=== PATIENT | male | born 1960 | race Caucasian/White ===

== ENCOUNTER → 2023-10-26 | Outpatient (CLI) | payer MEDICARE, MEDICAID ==
[~2023-10-26] VITALS: Ht 182.9 cm; Wt 69.4 kg
[~2023-10-26] MED LIST: ADENOSINE 58 MG in GIVE UN-DILUTED 0 ML IV ONE; ADENOSINE 90 MG/30 ML INJ IV ONE
== END | disposition home or self-care (01) ==
LOC: Rad HDHVI 08:17
PROVIDERS: ATTEND Internal Medicine Cardiovascular Disease
DX: I25.10 Atherosclerotic heart disease of native coronary artery without angina pectoris (principal); I45.10 Unspecified right bundle-branch block; J44.9 Chronic obstructive pulmonary disease, unspecified; E78.00 Pure hypercholesterolemia, unspecified; F17.210 Nicotine dependence, cigarettes, uncomplicated; Z82.49 Family history of ischemic heart disease and other diseases of the circulatory system; Z79.899 Other long term (current) drug therapy; Z79.82 Long term (current) use of aspirin
CPT/HCPCS: 78452; 93005; 96374; 96375; A9500; J0153

== ENCOUNTER → 2024-03-02 | Outpatient (CLI) | payer MEDICARE, MEDICAID | END | disposition home or self-care (01) | LOC: Rad HDHVI 09:06 | PROVIDERS: ATTEND Internal Medicine Cardiovascular Disease | DX: R06.02 Shortness of breath (principal); R05.9 Cough, unspecified | CPT/HCPCS: 71046 ==

== ENCOUNTER → 2024-07-01 | Outpatient (CLI) | payer MEDICARE, MEDICAID ==
[2024-07-01 09:51] LABS: Urine Blood Negative /uL (Negative); Urine Clarity Clear (Clear); Urine Color Yellow (Yellow); Urine Protein, UAD Negative (Negative); Urine Specific Gravity 1.017 (1.001-1.035); Urine Urobilinogen Normal (Negative); Urine pH 6.5 (5.0-9.0)
[2024-07-01 09:55] LABS: Hemoglobin 15.5 g/dL (13.5-17.5); Mean Corpuscular Hgb Conc. 34.7 g/dL (32.0-36.0); Red Blood Cells 4.51 10^6/uL (4.5-5.90); White Blood Cell 2.5 10^3/uL (4.4-10.8)
[2024-07-01 09:57] LABS: Hematocrit 44.6 % (41.0-53.0); Mean Corpuscular Hemoglobin 34.3 pg (28.0-32.0); Mean Corpuscular Volume 98.9 fL (80.0-100.0); Platelet Count (auto) 215 10^3/uL (140-450); Red Cell Distribution Width 13.7 % (11.8-14.3)
[2024-07-01 10:04] LABS: Band Neutrophils % (manual) 0; Basophils % (manual) 0 (0.0-2.0); Blast Cells 0; Metamyelocytes % 0; Myelocytes % 0; Promyelocytes % 0; Reactive Lymphocytes 0
[2024-07-01 10:12] LABS: Alanine Aminotransferase 16 U/L (7-40); Albumin 4.7 g/dL (3.2-4.8); Alkaline Phosphatase 85 U/L (46-116); Anion Gap 4 (5-15); BUN/Creatinine Ratio 18.1 (10.0-20.0); Blood Urea Nitrogen 13 mg/dL (9-23); Calcium 10.4 mg/dL (8.7-10.4); Carbon Dioxide 31 mmol/L (20-31); Chloride 96 mmol/L (98-107); Glucose 92 mg/dL (74-106); LDL Cholesterol 55 mg/dL (< 100); Potassium 4.2 mmol/L (3.5-5.1); Sodium 131 mmol/L (136-145); Triglycerides 50 mg/dL (< 150)
[2024-07-01 10:13] LABS: Bilirubin, Direct 0.2 mg/dL (<0.3); Bilirubin, Total 0.6 mg/dL (0.2-1.0); Cholesterol 138 mg/dL (< 200); HDL Cholesterol 76 mg/dL (40-59); Total Protein 8.3 g/dL (5.7-8.2)
[2024-07-01 10:20] LABS: Aspartate Aminotransferase 22 U/L (13-40)
[2024-07-01 12:56] LABS: Eosinophils % (manual) 2 (0-7); Lymphocytes % (manual) 6 (10.0-50.0); Monocytes % (manual) 10 (0-12); Platelet Estimate Adequate
== END | disposition home or self-care (01) ==
LOC: LAB 09:17
PROVIDERS: ATTEND Internal Medicine Cardiovascular Disease
DX: C61 Malignant neoplasm of prostate (principal); I10 Essential (primary) hypertension; E11.9 Type 2 diabetes mellitus without complications; R53.1 Weakness; R00.2 Palpitations; D64.9 Anemia, unspecified; E55.9 Vitamin D deficiency, unspecified; D57.3 Sickle-cell trait
CPT/HCPCS: 36415; 80048; 80061; 80076; 81003; 83036; 84153; 84403; 84443; 85007; 85027

== ENCOUNTER → 2024-12-07 | Outpatient (CLI) | payer MEDICARE, MEDICAID ==
--- NOTE | 2024-12-07 11:04 | DVH ---
EXAM: XY CHEST TWO VIEWS ROUTINE INDICATION: PRE OP PRE OP 64 years old, Male; PRE OP. TECHNIQUE: 2 views of the chest COMPARISON: XY CHEST TWO VIEWS ROUTINE on DOS: 03/02/24 FINDINGS: LUNGS: No pleural effusion, consolidation, or pneumothorax MEDIASTINUM: Unremarkable BONES: No acute osseous abnormality OTHER: None IMPRESSION: 1. No radiographic evidence of an acute cardiopulmonary process.
== END | disposition home or self-care (01) ==
LOC: Rad HDHVI 09:36
PROVIDERS: ATTEND Internal Medicine Cardiovascular Disease
DX: Z01.818 Encounter for other preprocedural examination (principal); J44.9 Chronic obstructive pulmonary disease, unspecified
CPT/HCPCS: 71046

== ENCOUNTER → 2024-12-09 | Outpatient (CLI) | payer MEDICARE, MEDICAID ==
--- NOTE | 2024-12-09 08:44 | DVHSR ---
APPROVED REPORT EXAM: LIMITED Two-dimensional and M-mode echocardiogram with Doppler and color Doppler. DIMENSIONS LVDd4.3 (3.8-5.7cm)LA (2D)3.4 (1.9-4.0cm)Aortic Root3.1 (2.0-3.7cm) LVDs2.8 (2.5-4.0cm)LA (MM) (1.9-4.0cm)Aortic Cusp Exc1.8 (1.5-2.0cm) EF (%) 65.0 (55-70%)Rt. Atrium3.8 (1.9-4.0cm)Asc. Aorta cm IVSd1.0 (0.7-1.1cm)RV (D) (1.8-2.4cm) PWd1.0 (0.7-1.1cm) Mitral Valve MitralMitral Stenosis E wave0.70m/sMV Mean GR.mmHg A wave0.80m/sMV Peak GR.mmHg E/A ratio0.92D MVAcm2 Aortic Valve Aortic ValveAortic Stenosis V10.70m/Taryn Mean GR.2mmHg V20.90m/Taryn Peak GR.4mmHg LVOT Diameter2.2 (1.8-2.4cm)Doppler AVA2.96cm2 Pulmonic Valve V20.80m/s LEFT VENTRICLE The left ventricle is normal size. The left ventricle is normal in structure and function. The Ejection Fraction is within normal limits. RIGHT VENTRICLE The right ventricle is normal size. ATRIA The left atrial size is normal. The right atrium size is normal. The atrial septum is aneurysmal. MITRAL VALVE The mitral valve is normal in structure. There is no mitral valve regurgitation noted. PULMONIC VALVE The pulmonic valve is not well visualized. TRICUSPID VALVE The tricuspid valve is grossly normal. AORTIC VALVE The aortic valve opens well. No aortic regurgitation is present. GREAT VESSELS The aortic root is normal size. PERICARDIAL EFFUSION There is no pericardial effusion. Conclusion EF >60%
== END | disposition home or self-care (01) ==
LOC: Rad HDHVI 07:58
PROVIDERS: ATTEND Internal Medicine Cardiovascular Disease
DX: I72.8 Aneurysm of other specified arteries (principal); I10 Essential (primary) hypertension
CPT/HCPCS: 93306

== ENCOUNTER → 2024-12-14 | Outpatient (CLI) | payer MEDICARE, MEDICAID ==
[~2024-12-14] VITALS: Ht 182.9 cm; Wt 65.3 kg
[~2024-12-14] MED LIST changes: +ADENOSINE 55 MG in GIVE UN-DILUTED 0 ML IV ONE; -ADENOSINE 58 MG in GIVE UN-DILUTED 0 ML IV ONE
== END | disposition home or self-care (01) ==
LOC: Rad HDHVI 08:04
PROVIDERS: ATTEND Internal Medicine Cardiovascular Disease
DX: I49.1 Atrial premature depolarization (principal); I49.3 Ventricular premature depolarization; I25.10 Atherosclerotic heart disease of native coronary artery without angina pectoris; I10 Essential (primary) hypertension; J44.9 Chronic obstructive pulmonary disease, unspecified; E78.00 Pure hypercholesterolemia, unspecified; F17.210 Nicotine dependence, cigarettes, uncomplicated; Z82.49 Family history of ischemic heart disease and other diseases of the circulatory system; Z98.61 Coronary angioplasty status
CPT/HCPCS: 78452; 93017; A9500; J0153; 93005; 96374; 96375

== ENCOUNTER → 2025-07-12 | Outpatient (CLI) | payer MEDICARE, MEDICAID | END | disposition home or self-care (01) | LOC: Rad HDHVI 12:36 | PROVIDERS: ATTEND Internal Medicine Cardiovascular Disease | DX: I10 Essential (primary) hypertension (principal) | CPT/HCPCS: 93880 ==

== ENCOUNTER 2025-08-30 13:25 | Outpatient (CLI) | payer MEDICARE, MEDICAID | END 2025-08-30 17:00 | disposition home or self-care (01) | LOC: Rad HDHVI 13:25 | PROVIDERS: ATTEND Internal Medicine Cardiovascular Disease | DX: I65.23 Occlusion and stenosis of bilateral carotid arteries (principal); I50.33 Acute on chronic diastolic (congestive) heart failure; I73.9 Peripheral vascular disease, unspecified | CPT/HCPCS: 93880 ==